=== PATIENT | male | born 1950 | race Two or more races ===

== ENCOUNTER 2019-07-25 09:39 | Emergency (ER) | payer OTHER ==
[~2019-07-25] VITALS: Ht 180.3 cm; Wt 99.8 kg
[~2019-07-25 09:39] MED LIST: ADALAT CC60 MG; ALLOPURINOL100 MG; ALLOPURINOL300 MG; ATENOLOL50 MG; ATENOLOL50 MG PO; FOLIC ACID1 MG; NIFE60TA3 PO; TERAZOSIN HCL2 M1; TERAZOSIN HCL2 M1 PO
[2019-07-25] MEDS ORDERED: ACID REDUCER20 M1 (10:04)
[2019-07-25] MEDS ORDERED: COLACE100 MG (10:05)
[2019-07-25] MEDS ORDERED: MITIGARE0.6 MG (10:05)
[2019-07-25] MEDS ORDERED: DOXAZOSIN MESYLA4 MG (10:05)
[2019-07-25] MEDS ORDERED: ELIQUIS2.5 MG (10:05)
[2019-07-25] MEDS ORDERED: KAPSPARGO SPRI100 MG (10:05)
[2019-07-25] MEDS ORDERED: IRBESARTAN-HCT1 EAC1 (10:06)
[2019-07-25] MEDS ORDERED: VITAMIN B-121000 MC4 (10:06)
[2019-07-25] MEDS ORDERED: KETO10TA2 PO (12:39)
[2019-07-25] MEDS ORDERED: NORFLEX100MG PO (12:39)
== END 2019-07-25 13:29 | disposition home or self-care (01) ==
LOC: ER 09:39
DX: M62.838 Other muscle spasm (principal); M54.2 Cervicalgia; I10 Essential (primary) hypertension

== ENCOUNTER 2020-09-15 09:49 | Emergency (ER) | payer OTHER ==
[~2020-09-15] VITALS: Ht 180.3 cm; Wt 97.5 kg
[~2020-09-15 09:49] MED LIST changes: +ACID REDUCER20 M1; +COLACE100 MG; +DOXAZOSIN MESYLA4 MG; +ELIQUIS2.5 MG; +IRBESARTAN-HCT1 EAC1; +KAPSPARGO SPRI100 MG; +KETO10TA2 PO; +MITIGARE0.6 MG; +NORFLEX100MG PO; +VITAMIN B-121000 MC4
== END 2020-09-15 12:46 | disposition home or self-care (01) ==
LOC: ER 09:49
DX: I10 Essential (primary) hypertension (principal); S50.12XA Contusion of left forearm, initial encounter; W18.39XA Other fall on same level, initial encounter; Y93.89 Activity, other specified; Y92.098 Other place in other non-institutional residence as the place of occurrence of the external cause

== ENCOUNTER 2021-02-14 12:00 | Emergency (ER) | payer OTHER ==
[~2021-02-14] VITALS: Ht 180.3 cm; Wt 95.3 kg
[2021-02-14] MEDS ORDERED: SKELAXIN800 MG PO (15:35)
[2021-02-14] MEDS ORDERED: ULTRAM50 MG PO (15:35)
[2021-02-14] MEDS ORDERED: MITIGARE0.6 MG PO (15:35)
[2021-02-14] MEDS ORDERED: CELEBREX100 MG PO (15:35)
== END 2021-02-14 15:47 | disposition home or self-care (01) ==
LOC: ER 12:00
DX: M62.838 Other muscle spasm (principal); M54.12 Radiculopathy, cervical region